=== PATIENT | male | born 1940 | race Caucasian/White ===

== ENCOUNTER → 2018-07-08 08:48 | Outpatient (CLI) | payer MEDICARE, SELFPAY ==
[2018-07-08 10:00] VITALS: PULSE 113; RESP 18; O2SAT 94; BMI 34.7
== END ==
PROVIDERS: Family Provider Preventive Medicine Occupational Medicine; PCP Preventive Medicine Occupational Medicine; Visit Provider Specialist
DX: M48.07 Spinal stenosis, lumbosacral region (principal)
CPT/HCPCS: 62284; 72131; 72265; Q9965

== ENCOUNTER → 2019-04-08 07:50 | Outpatient (CLI) | payer MEDICARE, SELFPAY ==
[2019-03-30 10:25] VITALS: BMI 33.5
--- NOTE | 2019-04-08 07:53 | US_ITS ---
STUDY: ABDOMINAL ULTRASOUND - RIGHT UPPER QUADRANT REASON FOR VISIT: Male, 78 years old. History of polycythemia vera. TECHNIQUE: Ultrasound evaluation of the right upper quadrant was performed with real-time and static drummond-scale imaging. TECHNICAL QUALITY: Adequate. COMPARISON: None. FINDINGS: Liver: The liver measures 18.3 cm. There is normal echogenicity of the liver. The bile ducts are within normal limits. There is hepatic color flow. The direction of portal flow is hepatopetal. There is no demonstrated mass lesion. Gallbladder: Normal distended gallbladder. The gallbladder wall measures 2.8 mm. There is a negative sonographic Manley's sign. There is no pericholecystic fluid. There are no gallstones. Common Bile Duct (C.B.D.): The common bile duct measures 4.1 mm. Pancreas: There is nonvisualization of the pancreas. Right Kidney: Normal size of the right kidney. The right kidney measures 12 cm x 5.6 times by 6.4 cm. Normal renal cortex. The right cortex measures 1.8 cm. 2 cysts are seen. The larger measures 1.5 cm x 1.4 cm x 1.1 cm. There is no right hydronephrosis. The spleen is slightly enlarged. It measures 12 cm x 6.1 cm x 4.3 cm. US/Abdomen Limited IMPRESSION: There are 2 right renal cysts. Mild splenomegaly. Electronically Signed: Glenn Navarro, at 14:48 EDT , Service support ,
== END ==
PROVIDERS: Family Provider Preventive Medicine Occupational Medicine; PCP Preventive Medicine Occupational Medicine; Referring Provider Internal Medicine Medical Oncology; Visit Provider Internal Medicine Medical Oncology
DX: D45 Polycythemia vera (principal)
CPT/HCPCS: 76705

== ENCOUNTER → 2019-11-10 08:29 | Outpatient (CLI) | payer MEDICARE, SELFPAY ==
[2019-11-03 14:52] VITALS: BMI 34.7
--- NOTE | 2019-11-10 08:35 | NM_ITS ---
CLINICAL: 78-year-old male with reported history of painful right knee arthroplasty operated approximately 4 years previous. LIMITED 99m Tc MDP THREE PHASE BONE SCINTIGRAPHY COMPARISON: None available FINDINGS: Following the intravenous administration of 24.0 mCi of 99m Tc MDP, three-phase bone acquisitions of the knee articulations reveal: 1. The flow and immediate static blood pool acquisitions demonstrate relatively symmetric-normal arterial and venous phase distribution of the radiopharmaceutical to the bilateral visualized lower extremities. 2. Delayed images depict heterogeneous radiopharmaceutical distribution in the visualized right mid-distal femoral diaphysis-metaphysis as well as the medial-lateral femoral components. 3. Facilitated uptake is noted in the patellofemoral compartments of both knees. 4. The remaining limited skeletal structures are scintigraphically unremarkable. Mild increased tracer uptake visualized in the tibial and femoral components of the presumed asymptomatic left knee prosthesis is most consistent with normal postsurgical change. NM/Bone Scan Three Phase IMPRESSION: 1. The increase in radiopharmaceutical concentration identified in the visualized right mid-distal femoral diaphysis and metaphysis may be further investigated with plain film radiography. 2. Enhanced tracer distribution defined in the medial and lateral femoral components of the symptomatic right knee prosthesis is consistent with a high likelihood of loosening in the setting of operative intervention > 2 years prior to the current presentation. If an infectious etiology is a diagnostic consideration, correlation with labeled leukocyte imaging is recommended. 3. 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 Electronically Signed: Ash York DO at 10:42 EST Tel , Service support ,
== END ==
PROVIDERS: Family Provider Preventive Medicine Occupational Medicine; PCP Preventive Medicine Occupational Medicine; Referring Provider Orthopaedic Surgery; Visit Provider Orthopaedic Surgery
DX: M17.11 Unilateral primary osteoarthritis, right knee (principal); G90.09 Other idiopathic peripheral autonomic neuropathy; Z96.651 Presence of right artificial knee joint
CPT/HCPCS: 78315

== ENCOUNTER → 2019-11-26 06:48 | Outpatient (CLI) | payer MEDICARE, SELFPAY ==
[2019-11-03 14:52] VITALS: BMI 34.7
--- NOTE | 2019-11-26 06:53 | CT_ITS ---
STUDY: CT RIGHT FEMUR WITHOUT CONTRAST REASON FOR EXAM: Male, 79 years old. Right leg pain. Prior surgery. RADIATION DOSAGE (If Supplied By Facility): CTDIvol = ( 19.95 ) mGy, DLP = ( 1186.21 ) mGycm TECHNIQUE: Transaxial CT imaging of the femur was performed. Sagittal and coronal images were reconstructed. Individualized dose optimization techniques were used for this CT. COMPARISON: CT scan dated August 28, 2014, bone scan dated November 10, 2019 and x-rays dated September 29, 2014. FINDINGS: Status post right hip arthroplasty. Surgical hardware at the hip appears intact/well aligned. No significant hip hardware loosening. Status post right knee arthroplasty. Surgical hardware at the knee appears intact/well aligned. No significant loosening of the arthroplasty hardware. Screw and plate fixation at the mid/distal lateral femoral cortex. Chronic minimally partially nonunited femoral fracture with overlying discontinuous callus (sagittal image 37 series 602 and axial image 142 series 3). No new fracture lines. No dislocation. No acute bone destruction. Osteopenia. Proximal fibula intact. Mild proximal tibia fibular joint arthrosis. Patella intact. Visualized abdominal/pelvic contents within normal limits. Vascular calcifications. Mild semimembranosus muscle atrophy. Diffuse muscle atrophy of the calf (axial image 225 series 2). Extensor mechanism appears intact with patellar thickening. CT/Extremity Lower without Contra IMPRESSION: Chronic minimally partially nonunited femoral fracture with bone remodeling/overlying callus Uncomplicated right hip arthroplasty Uncomplicated right knee arthroplasty Electronically Signed: Jovan Chavez DO at 9:24 EST Tel , Service support ,
== END ==
PROVIDERS: Family Provider Preventive Medicine Occupational Medicine; PCP Preventive Medicine Occupational Medicine; Referring Provider Orthopaedic Surgery; Visit Provider Orthopaedic Surgery
DX: M79.604 Pain in right leg (principal)
CPT/HCPCS: 73700

== ENCOUNTER → 2020-03-02 08:34 | Outpatient (CLI) | payer MEDICARE, SELFPAY ==
[2020-03-02 08:10] VITALS: BMI 34.7
--- NOTE | 2020-03-02 08:35 | RAD_ITS ---
STUDY: X-RAY - RIGHT KNEE REASON FOR EXAM: Male, 79 years old. PAIN TECHNIQUE: 4 view(s) of the knee. COMPARISON: Comparison is made with prior examination dated December 15, 2012. FINDINGS: The patient is status post screw and sideplate fixation of the distal visualized portion of the femur. The patient is status post total knee replacement. There is good alignment. Normal visualized proximal tibia and fibula. Normal proximal tibiofibular articulation. Soft tissue swelling. Vascular calcification. RAD/Knee 4 or More Views IMPRESSION: Status post open reduction and internal fixation of the distal right femur with a screw and sideplate fixation device. The patient also status post total knee replacement. There is good alignment. Soft tissue swelling and atherosclerotic calcification. Electronically Signed: Glenn Navarro, at 10:00 EDT , Service support ,
--- NOTE | 2020-03-02 08:35 | RAD_ITS ---
STUDY: X-RAY - RIGHT FEMUR REASON FOR STUDY: Male, 79 years old. PAIN TECHNIQUE: 2 view(s) of the femur. COMPARISON: Comparison is made with prior examination dated September 29, 2014. FINDINGS: The patient is status post right hip replacement. The patient is also status post open reduction and fixation of the mid and distal femoral fracture utilizing screw and sideplate fixation device. The fracture is healed. The patient is also status post total knee replacement. Vascular calcification. RAD/Femur Min 2 Views IMPRESSION: Status post right total hip replacement as well as open reduction and internal fixation of the mid and distal femoral fracture and knee prosthesis. The fracture involving the mid and distal portion of the femoral shaft has healed. Electronically Signed: Glenn Navarro, at 10:54 EDT , Service support ,
== END ==
PROVIDERS: PCP Preventive Medicine Occupational Medicine; Referring Provider Orthopaedic Surgery; Visit Provider Orthopaedic Surgery
DX: M25.561 Pain in right knee (principal)
CPT/HCPCS: 73552; 73564

== ENCOUNTER → 2020-03-15 05:43 | Outpatient (CLI) | payer MEDICARE, SELFPAY ==
[2020-03-02 14:10] VITALS: BMI 34.2
== END ==
PROVIDERS: PCP Preventive Medicine Occupational Medicine; Referring Provider Orthopaedic Surgery; Visit Provider Orthopaedic Surgery
DX: M25.561 Pain in right knee (principal); T84.032A Mechanical loosening of internal right knee prosthetic joint, initial encounter; Z87.81 Personal history of (healed) traumatic fracture; Z96.651 Presence of right artificial knee joint